=== PATIENT | male | born 1940 ===

== ENCOUNTER 2021-11-19 07:41 | Day surgery (SDC) | payer MEDICARE ==
[~2021-11-19] VITALS: Ht 165.1 cm; Wt 90.9 kg
[~2021-11-19 07:41] MED LIST: ASPI-1444 PO; ATOR40TA28 PO; CLOP75TA32 PO; COSO10OS OD; EZET10TA57 PO; ICOS1CAP PO; LATA2.5D14 OU; METO-391 PO; SODIUM CHLORIDE 0.9% 1,000 ML ONE
[2021-11-19] MEDS ORDERED: DiphenhydrAMINE HCL 50 MG CAPSULE ONE (08:12)
[2021-11-19] MEDS ORDERED: DIAZEPAM 5 MG TABLET ONE (08:12)
[2021-11-19] MEDS ORDERED: SODIUM CHLORIDE 0.9% 1,000 ML IV ONE (08:30)
[2021-11-19] MEDS ORDERED: MIDAZOLAM HCL 2 MG/2 ML VIAL ONE ×2 (08:34→08:56)
[2021-11-19] MEDS ORDERED: IOHEXOL 300 MG/ML 50 ML VIAL ONE (08:34)
[2021-11-19] MEDS ORDERED: FentaNYL CITRATE PF 100 MCG/2 ML VIAL ONE ×2 (08:34→08:55)
[2021-11-19] MEDS ORDERED: SODIUM BICARBONATE 50 MEQ/50 ML VIAL ONE (08:35)
[2021-11-19] MEDS ORDERED: IOHEXOL 300 MG/ML 100 ML VIAL ONE (08:35)
[2021-11-19] MEDS ORDERED: IOHEXOL 300 MG/ML 150 ML VIAL ONE (08:35)
[2021-11-19] MEDS ORDERED: HEPARIN SODIUM 1000 UNITS/NS 1,000 ML ONE (08:35)
[2021-11-19] MEDS ORDERED: LIDOCAINE/PF 1% 30 ML VIAL ONE (08:35)
[2021-11-19 09:00] VITALS: BP 169/78
[2021-11-19] MEDS ORDERED: HEPARIN SODIUM 1000 UNITS/NS 1,000 ML IARTER ONE (09:30)
[2021-11-19] MEDS ORDERED: IOHEXOL 300 MG/ML 150 ML VIAL IARTER ONE (09:30)
[2021-11-19] MEDS ORDERED: FentaNYL CITRATE PF 100 MCG/2 ML VIAL IVP ONE (09:30)
[2021-11-19] MEDS ORDERED: MIDAZOLAM HCL 2 MG/2 ML VIAL IVP ONE (09:30)
[2021-11-19] MEDS ORDERED: LIDOCAINE 1% 30 ML/SOD BICARB 8.4% 4 ML SQ ONE (09:30)
[2021-11-19] MEDS ORDERED: NITROGLYCERIN 400 MCG/SUBLINGUAL SPRAY 4.9 GM BOTTLE SL ONE ×2 (09:42→09:45)
[2021-11-19] MEDS ORDERED: DIAZEPAM 5 MG TABLET PO ONE (10:30)
[2021-11-19] MEDS ORDERED: ASPIRIN 81 MG CHEWABLE TABLET PO ONE (10:30)
[2021-11-19] MEDS ORDERED: DiphenhydrAMINE HCL 50 MG CAPSULE PO ONE (10:30)
== END 2021-11-19 15:10 | disposition home or self-care (01) ==
LOC: CATHLAB 07:41
PROVIDERS: ATTEND Internal Medicine Interventional Cardiology
DX: I25.10 Atherosclerotic heart disease of native coronary artery without angina pectoris (principal); I10 Essential (primary) hypertension; E78.5 Hyperlipidemia, unspecified; I73.9 Peripheral vascular disease, unspecified; Z20.822 Contact with and (suspected) exposure to COVID-19; Z87.891 Personal history of nicotine dependence; Z95.1 Presence of aortocoronary bypass graft; Z85.46 Personal history of malignant neoplasm of prostate; Z79.82 Long term (current) use of aspirin; E66.9 Obesity, unspecified
CPT/HCPCS: 93459; 99152; 99153; C1760; J1644; J2250; J3010; J3490 ×2; J7030; Q9967